=== PATIENT | female | born 1985 | race Hispanic/Latino ===

== ENCOUNTER 2017-10-24 00:56 | Inpatient (IN) | payer MEDICAID, OTHER ==
[~2017-10-24] VITALS: Ht 160 cm; Wt 50.4 kg
[2017-10-24 01:24] LABS: APPEARANCE,URINE Cloudy (CLEAR); BILIRUBIN,URINE Negative (NEGATIVE); COLOR,URINE Yellow (YELLOW); GLUCOSE, URINE (UA) Negative (NEGATIVE); KETONES,URINE Negative (NEGATIVE); LEUKOCYTE ESTERASE ,URINE Small (NEGATIVE); NITRATE,URINE Negative (NEGATIVE); OCCULT BLOOD,URINE Negative (NEGATIVE); PH,URINE 5.5 (5.0-8.0); PROTEIN,URINE Trace (NEGATIVE)
[2017-10-24 01:25] LABS: HCG,QUAL RESULT NEGATIVE (NEGATIVE)
[2017-10-24 01:30] LABS: BASOPHILS % (AUTO) 0.3 % (0.0-5.0); EOSINOPHILS % (AUTO) 2.5 % (0.0-8.0); HEMATOCRIT 26.9 % (36-48); MEAN CORPUSCULAR HEMOGLOBIN 19.4 pg (27.0-33.0); MEAN CORPUSCULAR HGB CONC 30.7 g/dL (32.0-36.0); MEAN CORPUSCULAR VOLUME 63.1 fL (79-99); NEUTROPHILS % (AUTO) 77.2 % (40.0-77.0); PLATELET COUNT (AUTO) 187 K/uL (130-400); RED BLOOD CELL COUNT(AUTO) 4.26 MIL/uL (4.00-5.50); RED CELL DISTRIBUTION WIDTH 16.2 % (11.0-15.5); WHITE BLOOD COUNT (AUTO) 13.1 K/uL (4.8-10.8)
[2017-10-24 01:33] LABS: BACTERIA,URINE None Seen /HPF (None Seen); MUCUS,URINE Many LPF (None Seen); RBC,URINE None Seen /HPF (0-1); RENAL EPITHELIAL CELLS,URINE Moderate /HPF (None Seen); SQUAMOUS EPITHELIAL CELL,UR Many /HPF (0-2); WBC,URINE None Seen /HPF (0-1)
[2017-10-24 01:41] LABS: CREATININE 0.6 mg/dL (0.5-1.5); POTASSIUM 3.6 mmol/L (3.5-5.1)
[2017-10-24 01:45] LABS: ALBUMIN 3.5 g/dL (3.5-5.0); BILIRUBIN,TOTAL 0.4 mg/dL (0.2-1.0); TOTAL PROTEIN, SERUM 7.9 g/dL (6.0-8.3)
[2017-10-24] MEDS ORDERED: DICYCLOMINE HCL 20 MG TAB ONE (02:33)
[2017-10-24] MEDS ORDERED: KETOROLAC TROMETHAMINE 30MG/ML ONE (02:41)
[2017-10-24] MEDS ORDERED: ZOSYN 3.375GM+NS 50ML 50 ML IV ONE (05:53)
[2017-10-24] MEDS ORDERED: SODIUM CHLORIDE 0.9% 1000ML 1,000 ML IV ONE (05:53)
[2017-10-24] MEDS ORDERED: POTASSIUM CHLORIDE 10% ELIXIR 20 MEQ/15 ML UDCUP PO PRN ×2 (06:15→08:45)
[2017-10-24] MEDS ORDERED: POTASSIUM CHLORIDE 20 MEQ ERTAB PO PRN ×2 (06:15→08:45)
[2017-10-24] MEDS ORDERED: LIDOCAINE HCL-MPF 1% 2ML VIAL IJ PRN (06:15)
[2017-10-24] MEDS ORDERED: POTASSIUM CHLORIDE 20MEQ/100ML 100 ML IV PRN ×2 (06:15→08:45)
[2017-10-24] MEDS ORDERED: MORPHINE SULFATE 2 MG/ML 1ML SYG ONE (07:27)
[2017-10-24 07:39] LABS: BASOPHILS % (AUTO) 0.3 % (0.0-5.0); EOSINOPHILS % (AUTO) 0.9 % (0.0-8.0); HEMATOCRIT 24.5 % (36-48); LYMPHOCYTES % (AUTO) 11.5 % (21.0-51.0); MEAN CORPUSCULAR HEMOGLOBIN 18.8 pg (27.0-33.0); MEAN CORPUSCULAR HGB CONC 30.2 g/dL (32.0-36.0); MEAN CORPUSCULAR VOLUME 62.4 fL (79-99); MONOCYTES % (AUTO) 9.6 % (3.0-13.0); NEUTROPHILS % (AUTO) 77.7 % (40.0-77.0); PLATELET COUNT (AUTO) 171 K/uL (130-400); RED BLOOD CELL COUNT(AUTO) 3.93 MIL/uL (4.00-5.50); RED CELL DISTRIBUTION WIDTH 16.3 % (11.0-15.5); WHITE BLOOD COUNT (AUTO) 10.5 K/uL (4.8-10.8)
[2017-10-24 07:40] LABS: RETICULOCYTE % (AUTO) 1.12 % (0.42-2.23)
[2017-10-24 07:53] LABS: CREATININE 0.6 mg/dL (0.5-1.5); POTASSIUM 3.5 mmol/L (3.5-5.1)
[2017-10-24 07:57] LABS: ALBUMIN 3.1 g/dL (3.5-5.0); BILIRUBIN,TOTAL 0.6 mg/dL (0.2-1.0); TOTAL PROTEIN, SERUM 7.2 g/dL (6.0-8.3)
[2017-10-24 08:17] LABS: % IRON SATURATION 2.2 % (22-44)
[2017-10-24 08:24] VITALS: BP 157/67
[2017-10-24] MEDS ORDERED: LIDOCAINE HCL-MPF 1% 2ML VIAL IVP PRN (08:45)
[2017-10-24] MEDS: FAMOTIDINE/PF 20 MG/2 ML VIAL IV SCH ×2 (09:21→21:06)
[2017-10-24] MEDS: MORPHINE SULFATE 4 MG/1ML SYG IVP PRN ×3 (11:29→23:06)
[2017-10-24 11:36] VITALS: BP 120/62
[2017-10-24] MEDS: SODIUM CHLORIDE 0.9% 1000ML 1,000 ML IV SCH (14:36)
[2017-10-24] MEDS: ZOSYN 3.375GM+NS 50ML 50 ML IV SCH ×2 (14:36→21:06)
[2017-10-24 16:01] VITALS: BP 113/71
[2017-10-24] MEDS: ACETAMINOPHEN 325 MG TAB PO PRN (16:27)
[2017-10-24 20:00] VITALS: BP 113/60
[2017-10-25] VITALS (23 sets, daily range): BP systolic 103–139; BP diastolic 50–81
[2017-10-25] MEDS: SODIUM CHLORIDE 0.9% 1000ML 1,000 ML IV SCH ×5 (01:48→16:24)
[2017-10-25] MEDS: MORPHINE SULFATE 4 MG/1ML SYG IVP PRN ×2 (02:58→07:00)
[2017-10-25] MEDS: ONDANSETRON HCL MDV 20ML 2 MG/ML VIAL IVP PRN (04:12)
[2017-10-25] MEDS: ZOSYN 3.375GM+NS 50ML 50 ML IV SCH ×3 (04:21→21:14)
[2017-10-25 04:53] LABS: HEMATOCRIT 22.9 % (36-48); MEAN CORPUSCULAR HEMOGLOBIN 19.1 pg (27.0-33.0); MEAN CORPUSCULAR HGB CONC 29.7 g/dL (32.0-36.0); MEAN CORPUSCULAR VOLUME 64.3 fL (79-99); PLATELET COUNT (AUTO) 179 K/uL (130-400); RED BLOOD CELL COUNT(AUTO) 3.56 MIL/uL (4.00-5.50); RED CELL DISTRIBUTION WIDTH 16.6 % (11.0-15.5)
[2017-10-25 05:15] LABS: CREATININE 0.6 mg/dL (0.5-1.5); POTASSIUM 3.9 mmol/L (3.5-5.1)
[2017-10-25] MEDS: ACETAMINOPHEN 325 MG TAB PO PRN (08:00)
[2017-10-25] MEDS: FAMOTIDINE/PF 20 MG/2 ML VIAL IV SCH ×2 (09:00→21:00)
[2017-10-25] MEDS ORDERED: LACTATED RINGERS 1000ML 1,000 ML IV ONE (10:57)
[2017-10-25] MEDS ORDERED: NEOSTIGMINE 5MG/5ML SYR IV ONE (12:49)
[2017-10-25] MEDS ORDERED: LIDOCAINE PF 2% 5ML ABBOJECT ONE (12:49)
[2017-10-25] MEDS ORDERED: DEXAMETHASONE SOD PHOSPHATE 10MG/ML 1ML VIAL ONE (12:49)
[2017-10-25] MEDS ORDERED: PROPOFOL 10 MG/ML 20ML VIAL IV ONE (12:49)
[2017-10-25] MEDS ORDERED: GLYCOPYRROLATE 0.2 MG/ML 5 ML VIAL ONE (12:49)
[2017-10-25] MEDS ORDERED: SUCCINYLCHOLINE 200MG/10ML SYR ONE (12:49)
[2017-10-25] MEDS ORDERED: MIDAZOLAM HCL 1 MG/ML 2ML VIAL ONE (12:49)
[2017-10-25] MEDS ORDERED: FENTANYL CITRATE PF 50 MCG/1 ML 2ML VIAL ONE ×2 (12:50→13:23)
[2017-10-25] MEDS ORDERED: HEPARIN SODIUM 1000UNIT/ML 10ML VIAL ONE (13:04)
[2017-10-25] MEDS ORDERED: ACETAMINOPHEN-CODEINE 300/30MG TAB PO PRN (14:30)
[2017-10-25] MEDS ORDERED: MEPERIDINE-PF 50 MG/ML SYG ONE (14:33)
[2017-10-25] MEDS: ACETAMINOPHEN-CODEINE 300/30MG TAB PO PRN (18:39)
[2017-10-26] MEDS: SODIUM CHLORIDE 0.9% 1000ML 1,000 ML IV SCH ×2 (02:32→18:02)
[2017-10-26 03:49] VITALS: BP 114/71
[2017-10-26] MEDS: ACETAMINOPHEN-CODEINE 300/30MG TAB PO PRN ×2 (04:21→07:58)
[2017-10-26] MEDS: ONDANSETRON HCL MDV 20ML 2 MG/ML VIAL IVP PRN ×2 (04:30→12:08)
[2017-10-26] MEDS: ZOSYN 3.375GM+NS 50ML 50 ML IV SCH ×3 (05:17→21:02)
[2017-10-26 05:31] LABS: BASOPHILS % (AUTO) 0.5 % (0.0-5.0); HEMATOCRIT 28.9 % (36-48); LYMPHOCYTES % (AUTO) 14.5 % (21.0-51.0); MEAN CORPUSCULAR HEMOGLOBIN 20.7 pg (27.0-33.0); MEAN CORPUSCULAR HGB CONC 31.1 g/dL (32.0-36.0); MEAN CORPUSCULAR VOLUME 66.7 fL (79-99); MONOCYTES % (AUTO) 6.5 % (3.0-13.0); NEUTROPHILS % (AUTO) 77.5 % (40.0-77.0); PLATELET COUNT (AUTO) 176 K/uL (130-400); RED BLOOD CELL COUNT(AUTO) 4.34 MIL/uL (4.00-5.50); WHITE BLOOD COUNT (AUTO) 9.8 K/uL (4.8-10.8)
[2017-10-26 05:48] LABS: CREATININE 0.5 mg/dL (0.5-1.5); POTASSIUM 3.9 mmol/L (3.5-5.1)
[2017-10-26 07:43] VITALS: BP 110/61
[2017-10-26] MEDS: FAMOTIDINE/PF 20 MG/2 ML VIAL IV SCH ×2 (09:15→21:03)
[2017-10-26] MEDS ORDERED: ACETAMINOPHEN 325 MG TAB PO PRN (11:45)
[2017-10-26 11:53] VITALS: BP 115/69
[2017-10-26] MEDS: ACETAMINOPHEN 325 MG TAB PO PRN (12:07)
[2017-10-26 15:50] VITALS: BP 111/68
[2017-10-26 19:34] VITALS: BP 117/72
[2017-10-26 23:28] VITALS: BP 115/66
[2017-10-27 03:19] VITALS: BP 115/67
[2017-10-27] MEDS: ZOSYN 3.375GM+NS 50ML 50 ML IV SCH (04:54)
[2017-10-27] MEDS: SODIUM CHLORIDE 0.9% 1000ML 1,000 ML IV SCH (05:44)
[2017-10-27 07:25] VITALS: BP 109/73
[2017-10-27] MEDS: FAMOTIDINE/PF 20 MG/2 ML VIAL IV SCH (08:18)
[2017-10-27] MEDS ORDERED: ACET1TAB12 PO (09:56)
[2017-10-27 11:36] VITALS: BP 118/62
== END 2017-10-27 12:05 | disposition home or self-care (01) | DRG 419 ==
LOC: EDH 00:56 → EDHIP 00:57 → OBSVTOIN 00:57 → WSH 08:25
PROVIDERS: ADMIT Family Medicine; ATTEND Family Medicine
PROC: 30233R1 Transfusion of Nonautologous Platelets into Peripheral Vein, Percutaneous Approach (ICD-10-PCS; 2017-10-25)
PROC: 30233N1 Transfusion of Nonautologous Red Blood Cells into Peripheral Vein, Percutaneous Approach (ICD-10-PCS; 2017-10-25)
PROC: 0FT44ZZ Resection of Gallbladder, Percutaneous Endoscopic Approach (ICD-10-PCS; principal; 2017-10-25 12:50)
DX: K80.00 Calculus of gallbladder with acute cholecystitis without obstruction (principal); D64.9 Anemia, unspecified; N92.0 Excessive and frequent menstruation with regular cycle
CPT/HCPCS: 36415; 36430; 76705; 80048; 80053; 81001; 81025; 82150; 82607; 82728; 82746; 83690; 85025; 85027; 86850; 86900; 86901; 86922; J0330; J1100; J1644; J1885; J2001; J2175; J2250; J2270; J2543; J2704; J2710; J3010; J3480; J3490; J7030; J7120; P9016